=== PATIENT | female | born 1955 | race Caucasian/White ===

== ENCOUNTER → 2019-03-15 | Outpatient (CLI) | payer OTHER ==
[~2019-03-15] MED LIST: ATOR10; CLON1; EZET10; FLUO20; GABA300; LEVE500
[2019-03-15 15:50] LABS: Body Fluid Crystals NEG (NEGATIVE)
== END | disposition home or self-care (01) ==
LOC: LAB SHORT 12:45 → LAB EV 12:45
PROVIDERS: Family Medicine
DX: M17.31 Unilateral post-traumatic osteoarthritis, right knee (principal)
CPT/HCPCS: 89060

== ENCOUNTER 2019-09-17 07:14 | Day surgery (SDC) | payer OTHER ==
[~2019-09-17] VITALS: Ht 165.1 cm; Wt 70.1 kg
[~2019-09-17 07:14] MED LIST changes: +EUTHYROX50 MCG PO; +LOSA50 PO; +PANT40 PO; +PRESERVISION A1 EACH PO; +ROSU10TA PO; +Seroquel Xr50 MG PO; +TOPIRAMATE ER100 MG; +Vivelle-Dot1 EACH TD
--- NOTE | 2019-09-17 08:32 | NUR ---
09/17/19 0832 Jennifer Santos PT. VERBALIZES HAVING A COLD. PT. SOUNDS STUFFED UP. LUNGS CLEAR.
== END 2019-09-17 09:35 | disposition home or self-care (01) ==
LOC: ORSCSDS 07:14
PROVIDERS: Student in an Organized Health Care Education/Training Program
PROC: 0DB58ZX Excision of Esophagus, Via Natural or Artificial Opening Endoscopic, Diagnostic (ICD-10-PCS; principal; 2019-09-17 08:30)
PROC: 0DB68ZX Excision of Stomach, Via Natural or Artificial Opening Endoscopic, Diagnostic (ICD-10-PCS; principal; 2019-09-17 08:30)
DX: R13.10 Dysphagia, unspecified (principal); K21.9 Gastro-esophageal reflux disease without esophagitis; K29.70 Gastritis, unspecified, without bleeding; I10 Essential (primary) hypertension; E03.9 Hypothyroidism, unspecified; R56.9 Unspecified convulsions; Z87.891 Personal history of nicotine dependence; Z79.899 Other long term (current) drug therapy
CPT/HCPCS: 88305; 88342; J2704; J7120

== ENCOUNTER → 2021-11-09 | Outpatient (CLI) | payer OTHER ==
[2021-11-09 12:20] LABS: EOSINOPHILS PERCENT AUTO 5 % (0-6); Hematocrit 43.8 % (33.0-51.0); Hemoglobin 14.5 g/dL (11.5-16.0); LYMPHOCYTES PERCENT AUTO 30 % (21-46); MONOCYTES PERCENT AUTO 11 % (4-13); Mean Corpuscular HGB 32.3 pg (26.0-34.0); Mean Corpuscular HGB Conc 33.1 g/dL (31.5-36.5); Mean Corpuscular Volume 98 fL (80-100); Mean Platelet Volume 9.5 fL (9.1-12.4); NEUTROPHILS PERCENT AUTO 53 % (41-73); Platelet Count 328 K/mm3 (150-400); RDW Coefficient Variation 13.2 % (11.7-14.2); RDW Standard Deviation 47.5 fL (35.1-46.3); Red Blood Cell Count 4.49 M/mm3 (3.80-5.20)
[2021-11-09 12:21] LABS: BASOPHILS ABSOLUTE AUTO 0.07 K/mm3 (0.00-0.23); BASOPHILS PERCENT AUTO 1 % (0-2); EOSINOPHILS ABSOLUTE AUTO 0.33 K/mm3 (0.00-0.68); IMMATURE GRAN ABSOLUTE AUTO 0.01 K/mm3 (0.00-0.10); IMMATURE GRAN PERCENT AUTO 0 % (0-1); LYMPHOCYTES ABSOLUTE AUTO 1.97 K/mm3 (0.84-5.20); MONOCYTES ABSOLUTE AUTO 0.73 K/mm3 (0.16-1.47); NEUTROPHILS ABSOLUTE AUTO 3.49 K/mm3 (1.96-9.15)
[2021-11-09 13:18] LABS: Alanine Aminotransfer (ALT/SGP 41 U/L (12-78); Albumin, Blood 4.1 g/dL (3.4-5.0); Albumin/Globulin Ratio 1.5 (0.8-1.8); Alk Phos 92 U/L (40-126); Anion Gap 9 mmol/L (6-16); Aspartate Aminotrans (AST/SGOT 21 U/L (12-37); Bilirubin, Total 0.3 mg/dL (0.1-1.0); Blood Urea Nitrogen 24 mg/dL (8-24); Bun/Creatinine Ratio 30.4 (12.0-20.0); CO2, Blood 25 mmol/L (21-32); Chloride, Blood 112 mmol/L (98-108); Cholesterol 182 mg/dL (50-200); Creatinine, Blood 0.79 mg/dL (0.40-1.00); Free Thyroxine 0.86 ng/dL (0.70-1.60); Globulin, Blood 2.7 g/dL (2.2-4.0); Glomerular Filtration Rate >60 (60-); Glucose, Blood 98 mg/dL (70-99); HDL Cholesterol 46 mg/dL (>39); LDL/HDL RATIO 2.3; Low Density Lipoprotein Chol 104 mg/dL (<110); Potassium, Blood 4.5 mmol/L (3.5-5.5); Sodium, Blood 146 mmol/L (136-145); Thyroid Stimulating Hormone 0.565 uIU/mL (0.360-4.800); Total Protein, Blood 6.8 g/dL (6.4-8.2); Triglycerides 158 mg/dL (30-160); Very Low Density Lipoprot Chol 31 mg/dL (6-32)
== END | disposition home or self-care (01) ==
LOC: LAB SHORT 12:11
PROVIDERS: Family Medicine
DX: E78.5 Hyperlipidemia, unspecified (principal); E03.9 Hypothyroidism, unspecified; I10 Essential (primary) hypertension
CPT/HCPCS: 36415; 80053; 80061; 84439; 84443; 85025

== ENCOUNTER → 2022-11-02 | Outpatient (CLI) | payer OTHER | END | disposition home or self-care (01) | LOC: PLD 07:55 → LAB SHORT 07:55 | DX: D48.5 Neoplasm of uncertain behavior of skin (principal) | CPT/HCPCS: 88305 ==

== ENCOUNTER → 2023-02-17 | Outpatient (CLI) | payer OTHER ==
[2023-02-17 13:59] LABS: Source, Urine Clean Catch
[2023-02-17 14:38] LABS: Appearance, Urine Cloudy (Clear); Bilirubin, Urine Neg (Neg); Blood, Urine Neg (Neg); Color, Urine Yellow (P-Yellow); Glucose Qualitative, Urine Neg (Neg); Ketones, Urine Neg (Neg); Leukocyte Esterase, Urine 3+ (Neg); Nitrite, Urine Pos (Neg); Protein, Urine 1+ (Neg); Specific Gravity, Urine 1.015 (1.003-1.022); Urobilinogen, Urine NORM (Normal)
[2023-02-17 15:06] LABS: Bacteria Many /hpf; Red Blood Cells, Urine 0-2 /hpf (0-2); Squamous Epithelial Cells Rare /hpf (Few); White Blood Cells, Urine 50-100 /hpf (0-5)
== END | disposition home or self-care (01) ==
LOC: LAB SHORT 13:30 → LAB 13:30
PROVIDERS: Family Medicine
DX: R30.0 Dysuria (principal)
CPT/HCPCS: 81001; 87077; 87086; 87186

== ENCOUNTER → 2025-01-22 | Outpatient (CLI) | payer OTHER ==
[~2025-01-22] MED LIST changes: +ATORVASTATIN CA20 MG PO
[2025-01-22 15:03] LABS: BASOPHILS ABSOLUTE AUTO 0.05 K/mm3 (0.00-0.23); BASOPHILS PERCENT AUTO 1 % (0-2); EOSINOPHILS ABSOLUTE AUTO 0.16 K/mm3 (0.00-0.68); EOSINOPHILS PERCENT AUTO 3 % (0-6); Hematocrit 46.3 % (33.0-51.0); Hemoglobin 15.5 g/dL (11.5-16.0); IMMATURE GRAN ABSOLUTE AUTO 0.02 K/mm3 (0.00-0.10); IMMATURE GRAN PERCENT AUTO 0 % (0-1); LYMPHOCYTES ABSOLUTE AUTO 1.69 K/mm3 (0.84-5.20); LYMPHOCYTES PERCENT AUTO 28 % (21-46); MONOCYTES ABSOLUTE AUTO 0.52 K/mm3 (0.16-1.47); MONOCYTES PERCENT AUTO 9 % (4-13); Mean Corpuscular HGB 33.6 pg (26.0-34.0); Mean Corpuscular HGB Conc 33.5 g/dL (31.5-36.5); Mean Corpuscular Volume 100 fL (80-100); NEUTROPHILS ABSOLUTE AUTO 3.53 K/mm3 (1.96-9.15); NEUTROPHILS PERCENT AUTO 59 % (41-73); Platelet Count 320 K/mm3 (150-400); RDW Coefficient Variation 12.6 % (11.7-14.2); RDW Standard Deviation 46.9 fL (35.1-46.3); Red Blood Cell Count 4.61 M/mm3 (3.80-5.20); White Blood Cell Count 5.97 K/mm3 (4.00-11.30)
[2025-01-22 15:26] LABS: Albumin, Blood 4.2 g/dL (3.4-5.0); Albumin/Globulin Ratio 1.3 (0.8-1.8); Bilirubin, Total 0.4 mg/dL (0.1-1.0); Bun/Creatinine Ratio 15.5 (12.0-20.0); Calcium, Blood 9.2 mg/dL (8.5-10.1); Creatinine, Blood 0.84 mg/dL (0.40-1.00); Globulin, Blood 3.3 g/dL (2.2-4.0); Thyroid Stimulating Hormone 1.4 uIU/mL (0.360-4.800); Total Protein, Blood 7.5 g/dL (6.4-8.2)
== END ==
LOC: LAB SHORT 14:56 → LAB 14:56
PROVIDERS: Physician Assistant
DX: R53.83 Other fatigue (principal); R82.81 Pyuria
CPT/HCPCS: 80053; 84443; 85025; 87086

== ENCOUNTER 2025-01-27 12:49 | Inpatient (IN) | payer OTHER ==
[~2025-01-27] VITALS: Ht 162.6 cm; Wt 76.4 kg
[~2025-01-27 12:49] MED LIST changes: +ALORA1 EA11; -ATORVASTATIN CA20 MG PO; -Vivelle-Dot1 EACH TD
[2025-01-27 13:18] LABS: BASOPHILS ABSOLUTE AUTO 0.07 K/mm3 (0.00-0.23); BASOPHILS PERCENT AUTO 1 % (0-2); EOSINOPHILS ABSOLUTE AUTO 0.07 K/mm3 (0.00-0.68); EOSINOPHILS PERCENT AUTO 1 % (0-6); Hematocrit 44.6 % (33.0-51.0); Hemoglobin 15.1 g/dL (11.5-16.0); IMMATURE GRAN ABSOLUTE AUTO 0.05 K/mm3 (0.00-0.10); IMMATURE GRAN PERCENT AUTO 0 % (0-1); LYMPHOCYTES ABSOLUTE AUTO 2.02 K/mm3 (0.84-5.20); LYMPHOCYTES PERCENT AUTO 17 % (21-46); MONOCYTES ABSOLUTE AUTO 0.85 K/mm3 (0.16-1.47); MONOCYTES PERCENT AUTO 7 % (4-13); Mean Corpuscular HGB Conc 33.9 g/dL (31.5-36.5); Mean Corpuscular Volume 101 fL (80-100); Mean Platelet Volume 9.1 fL (9.1-12.4); NEUTROPHILS ABSOLUTE AUTO 9.09 K/mm3 (1.96-9.15); NEUTROPHILS PERCENT AUTO 75 % (41-73); Platelet Count 297 K/mm3 (150-400); RDW Coefficient Variation 12.6 % (11.7-14.2); Red Blood Cell Count 4.44 M/mm3 (3.80-5.20); White Blood Cell Count 12.15 K/mm3 (4.00-11.30)
[2025-01-27 13:41] LABS: Albumin, Blood 3.8 g/dL (3.4-5.0); Albumin/Globulin Ratio 1.2 (0.8-1.8); Bilirubin, Total 0.5 mg/dL (0.1-1.0); Bun/Creatinine Ratio 22.6 (12.0-20.0); Calcium, Blood 8.5 mg/dL (8.5-10.1); Creatinine, Blood 0.8 mg/dL (0.40-1.00); Globulin, Blood 3.1 g/dL (2.2-4.0); Potassium, Blood 3.6 mmol/L (3.5-5.5); Total Protein, Blood 6.9 g/dL (6.4-8.2)
[2025-01-27] MEDS ORDERED: Aspirin 325 MG Tab PO ONE (14:30)
[2025-01-27] MEDS ORDERED: FentaNYL Citrate 50 MCG/ML 2 ML Injection IV ONE (14:45)
[2025-01-27] MEDS ORDERED: Ondansetron HCl 2 MG / ML 2ML Vial IV ONE (14:45)
[2025-01-27 15:08] LABS: Anti-Xa UFH, PHA Monitoring <0.10 IU/mL; International Normalized Ratio 0.98; Prothrombin Time Results 10.5 Sec (9.7-11.5)
[2025-01-27] MEDS ORDERED: Dose Adjust by Pharmacy XX STA ×2 (15:19→23:03)
[2025-01-27] MEDS ORDERED: Heparin Sodium,Porcine/0.5 NS 500 ML IV SCH (15:20)
[2025-01-27] MEDS ORDERED: Heparin Sodium 5000 Units/ML 1ML MDV IV ONE (15:20)
[2025-01-27] MEDS ORDERED: Nitroglycerin 0.4 MG SUBL SL PRN (16:05)
[2025-01-27] MEDS ORDERED: HydrALAZINE HCl 20 MG / ML 1ML Vial IV PRN (16:10)
[2025-01-27] MEDS ORDERED: FLU VACC TS2024-25(6MOS UP)/PF 45 MCG/0.5 ML SYRINGE IM PRN (16:10)
[2025-01-27] MEDS ORDERED: FentaNYL Citrate 50 MCG/ML 2 ML Injection IV PRN (16:10)
[2025-01-27 18:30] VITALS: BP 164/84
[2025-01-27] MEDS ORDERED: Acetaminophen 325 MG TABLET PO PRN (18:40)
[2025-01-27] MEDS ORDERED: Simethicone 80 MG Chew PO PRN (18:40)
[2025-01-27] MEDS ORDERED: ATORVASTATIN CA20 MG PO (18:44)
[2025-01-27 20:32] VITALS: BP 150/88
[2025-01-27] MEDS ORDERED: LORazepam 1 MG Tab PO ONE (20:49)
[2025-01-27] MEDS ORDERED: QUEtiapine Fumarate 50 MG TAB PO SCH (21:00)
[2025-01-27] MEDS ORDERED: Levothyroxine Sodium 0.05 MG Tab PO SCH (21:10)
[2025-01-27] MEDS ORDERED: Aspirin 81 MG Chew PO SCH (21:10)
[2025-01-27] MEDS ORDERED: Losartan Potassium 50 MG Tab PO SCH (21:10)
[2025-01-27] MEDS ORDERED: Topiramate 100 MG Tab PO SCH (21:10)
[2025-01-27] MEDS ORDERED: Atorvastatin 40 MG Tab PO SCH (21:10)
[2025-01-28] VITALS (11 sets, daily range): BP systolic 99–158; BP diastolic 63–99
[2025-01-28 05:01] LABS: BASOPHILS PERCENT AUTO 1 % (0-2); EOSINOPHILS PERCENT AUTO 2 % (0-6); Hematocrit 47.4 % (33.0-51.0); Hemoglobin 16.4 g/dL (11.5-16.0); IMMATURE GRAN ABSOLUTE AUTO 0.05 K/mm3 (0.00-0.10); IMMATURE GRAN PERCENT AUTO 0 % (0-1); LYMPHOCYTES ABSOLUTE AUTO 4.55 K/mm3 (0.84-5.20); LYMPHOCYTES PERCENT AUTO 39 % (21-46); MONOCYTES ABSOLUTE AUTO 0.87 K/mm3 (0.16-1.47); MONOCYTES PERCENT AUTO 7 % (4-13); Mean Corpuscular HGB 34.8 pg (26.0-34.0); Mean Corpuscular HGB Conc 34.6 g/dL (31.5-36.5); Mean Corpuscular Volume 101 fL (80-100); Mean Platelet Volume 9.2 fL (9.1-12.4); NEUTROPHILS ABSOLUTE AUTO 6.02 K/mm3 (1.96-9.15); NEUTROPHILS PERCENT AUTO 51 % (41-73); Platelet Count 321 K/mm3 (150-400); RDW Coefficient Variation 12.6 % (11.7-14.2); RDW Standard Deviation 47.2 fL (35.1-46.3); Red Blood Cell Count 4.71 M/mm3 (3.80-5.20); White Blood Cell Count 11.79 K/mm3 (4.00-11.30)
[2025-01-28 05:17] LABS: Bun/Creatinine Ratio 18.9 (12.0-20.0); Calcium, Blood 8.7 mg/dL (8.5-10.1); Creatinine, Blood 0.74 mg/dL (0.40-1.00); Potassium, Blood 4.1 mmol/L (3.5-5.5)
[2025-01-28] MEDS ORDERED: Dose Adjust by Pharmacy XX STA (05:36)
[2025-01-28] MEDS ORDERED: Levothyroxine Sodium 0.05 MG Tab PO SCH ×2 (06:00→21:00)
[2025-01-28] MEDS ORDERED: LORazepam 2 MG/ML 1ML Injection IV PRN (06:40)
[2025-01-28] MEDS ORDERED: LORazepam 2 MG/ML 1ML Injection IV ONE (06:50)
--- NOTE | 2025-01-28 07:37 | NUR ---
SHIFT SUMMARY: PT IS A&OX4, VERY ANXIOUS AND SCARED ABOUT THIS HOSPITALIZATION. C/O MANCILLA, BUT WANTED TO WAIT FOR ANY MEDICATION. ANTI-ANXIETY MEDICATIONS ORDERED AND GIVEN WITH GOOD EFFECT. HEP GTT INFUSING PER ORDERS. TOLERATING A HEART HEALTHY DIET, NPO AFTER MN FOR ANGIOGRAM THIS MORNING. CRITICAL TROPONIN THIS AM 16,533, DR UP AWARE. SBA FOR LINE MANAGEMENT. VOIDING LARGE AMOUNTS OF CLEAR, YELLOW URINE. NO BM THIS SHIFT. BED IN LOWEST POSITION, CALL LIGHT WITHIN REACH. CALLS APPROPRIATELY AND IS ABLE TO ADVOCATE NEEDS EFFECTIVELY.
[2025-01-28] MEDS ORDERED: Clopidogrel Bisulfate 300 MG Cap PO STA (07:52)
[2025-01-28] MEDS ORDERED: Metoprolol Succinate 25 MG TABCR PO SCH (08:00)
[2025-01-28] MEDS ORDERED: Heparin Sodium 1000 Units/ML 10ML MDV ONE ×2 (08:16→11:06)
[2025-01-28] MEDS ORDERED: Verapamil HCL 2.5 MG/ML 2ML Injection ONE (08:16)
[2025-01-28] MEDS ORDERED: NS 1,000 ML IV ONE ×2 (08:16→10:07)
[2025-01-28] MEDS ORDERED: Nitroglycerin 2 MG/20 ML BTL ONE (08:16)
[2025-01-28] MEDS ORDERED: NS 250 ML IV ONE (08:16)
[2025-01-28] MEDS ORDERED: Losartan Potassium 50 MG Tab PO SCH ×2 (09:00→21:00)
[2025-01-28] MEDS ORDERED: Atorvastatin 40 MG Tab PO SCH ×2 (09:00→21:00)
[2025-01-28] MEDS ORDERED: Fluconazole 100 MG Tab PO SCH (09:00)
[2025-01-28] MEDS ORDERED: Aspirin 81 MG Chew PO SCH ×3 (09:00→21:00)
[2025-01-28] MEDS ORDERED: Topiramate 100 MG Tab PO SCH ×2 (09:00→21:00)
--- NOTE | 2025-01-28 09:55 | NUR ---
THE PT INFORMED THIS RN THAT SHE RECIEVED A PHONE CALL FROM URGENT CARE THIS MORNING BECAUSE SHE TESTED POSITIVE FOR A YEAST INFECTION LAST WEEK AND THEY WERE GOING TO START HE ON DIFLUCAN. THIS RN LET DR. RANGEL KNOW AND THE ANTIFUNGLE WAS STARTED HERE. THE PT WILL BE GOING FOR AN ANGIOGRAM THIS MORNING. DR. LOYA WENT OVER CONSENT WITH THE PT AND DR. LOYOLA WILL BE DOING THE PROCEDURE. SHE REMAINS ON A HEPARIN GTT MANAGED PER PHARMACY. SHE IS NPO. HER IS AT BEDSIDE AND UPDATED ON CARE. ON TELE SHE IS SR 70'S-90'S AND BP STABLE. SHE HAS DENIED ANY ANGINA OR CHEST PRESSURE. SHE IS ON RA W/ SP02 >93%. PT DENIES ANY SOB. SHE IS A SBA FOR LINE MANAGEMENT AND WAS ABLE TO TAKE A SHOWER THIS MORNING BEFORE HER PROCEDURE. WAITING ON THE HEAD AUTOMATIC SAWYER AT THIS TIME. SEE NOTES FOR UPDATES.
[2025-01-28] MEDS ORDERED: FentaNYL Citrate 50 MCG/ML 2 ML Injection ONE ×2 (10:29→11:31)
[2025-01-28] MEDS ORDERED: Midazolam HCl 1MG / ML 2ML Vial ONE (10:30)
[2025-01-28] MEDS ORDERED: Ondansetron HCl 2 MG / ML 2ML Vial ONE (11:05)
[2025-01-28] MEDS ORDERED: Clopidogrel Bisulfate 300 MG Cap ONE (11:12)
[2025-01-28] MEDS ORDERED: Mag Hydrox/AL Hydrox/Simeth 30 ML UDC ONE (11:40)
[2025-01-28] MEDS ORDERED: Metoclopramide HCL Soln 10 MG/10 ML UDC PO PRN (12:20)
--- NOTE | 2025-01-28 13:22 | NUR ---
PT BACK FROM ANGIOGRAM ABOUT 1240. PT'S FAMILY PRESENT AT THE BEDSIDE THE PT HAS RIGHT RADIAL ACCESS AND TWO TR BANDS W/ 10 CC'S ON THE RIGHT WRIST. THE PT'S RIGHT HAND IS PURPLE IN COLOR BUT CAP REFILL <3, GOOD PLEATH. PT DOES HAVE NOTED N/T IN DISTAL FINGERS. THE SECOND TRBAND WAS PLACED IN THE POST OP ROOM D/T HEMATOMA. THE PT WAS HAVING SOME NAUSEA BUT SIPPING SEIRRA MIST AND EATING CRACKERS RESOLVED NAUSEA. SHE CONTINUES TO HAVE A HEADACHE AFTER RECIEVING NITRO IN THE AUTOMATION TEST DEVELOPER. THE PT HAS NOT HAD ANY ANGINA OR CHEST PRESSURE SINCE RETURNING TO THE ROOM. EKG COMPLETED PER ORDER. HEPARIN GTT WAS D/C'D. RIGHT WRIST TR BAND RECOVERY PER PROTOCOL. THE PT'S STENT CARD WAS GIVEN TO LIZBETH, THE PT'S SPOUSE. SEE NOTES FOR UPDATES.
--- NOTE | 2025-01-28 15:02 | NUR ---
TRBAND UPDATE THE PT'S PROXIMAL TRBAND PLACED FOR HEMATOMA WAS REMOVED ABOUT 1425. WHEN THIS RN WENT TO CHECK ON THE PT'S WRIST AT 1435 A HEMATOMA WAS NOTED PROXIMAL TO THE ACCESS TRBAND. MANNUAL PRESSURE WAS HELD FOR 15 MINUTES AND HEMATOMA TRBAND WAS PLACED BACK OVER THE SITE WITH 9CC'S OF AIR FOR MANNUAL PRESSURE. SEE NOTES FOR UPDATES.
--- NOTE | 2025-01-28 16:19 | NUR ---
TR BAND UPDATE THIS RN CALLED [facility] RADIOLOGICAL TECHNOLOGIST SANDRA TO HELP ASSESS THE PT'S RADIAL SITE BECAUSE OF ONGOING HEMTOMA POST 4 HOURS AND THE NEED FOR CONTINUED MANNUAL PRESSURE. SANDRA MESSAGED DR. FISCHER TO ASSESS THE PT'S WRIST. HE PLACED A MANNUAL BLOOD PRESSURE CUFF ON THE PT'S WRIST AND GAVE INSTRUCTIONS TO DEFLATE 10MM FROM THE CUFF, THEN RECLAMP. AFTER TWENTY MINUTES WE WILL DEFLATE ANOTHER 10MM FROM THE MANNUAL CUFF AND RECLAMP THE CUFF. ORDERS TO REASSESS THE SITE AFTER ANOTHER TWENTY MINUTES. SEE NOTES FOR UPDATES.
--- NOTE | 2025-01-28 17:54 | NUR ---
TR BAND UPDATE RIGHT WRIST W/O ANY COMPRESSION. GAUZE AND TEGADERM IINTACT AND ARMBOARD ON. SITE WITH ECCHYMOSIS AND TENDERNESS. PT REMAINS ON RA W/ SP02 >94%, AND DENIES ANY SOB. ON TELE SHE IS SR 70'S-90'S. TOLERATING PO INTAKE. PT HAD ON-OFF HEADACHE AND NAUSEA. PROVIDER AWARE. FAMILY AT BEDSIDE AND UPDATED ON CARE.
[2025-01-29 03:50] LABS: BASOPHILS ABSOLUTE AUTO 0.05 K/mm3 (0.00-0.23); BASOPHILS PERCENT AUTO 1 % (0-2); EOSINOPHILS ABSOLUTE AUTO 0.15 K/mm3 (0.00-0.68); EOSINOPHILS PERCENT AUTO 2 % (0-6); Hematocrit 43.7 % (33.0-51.0); Hemoglobin 14.9 g/dL (11.5-16.0); IMMATURE GRAN ABSOLUTE AUTO 0.06 K/mm3 (0.00-0.10); IMMATURE GRAN PERCENT AUTO 1 % (0-1); LYMPHOCYTES ABSOLUTE AUTO 2.74 K/mm3 (0.84-5.20); LYMPHOCYTES PERCENT AUTO 28 % (21-46); MONOCYTES ABSOLUTE AUTO 0.88 K/mm3 (0.16-1.47); MONOCYTES PERCENT AUTO 9 % (4-13); Mean Corpuscular HGB Conc 34.1 g/dL (31.5-36.5); Mean Corpuscular Volume 100 fL (80-100); NEUTROPHILS ABSOLUTE AUTO 6.05 K/mm3 (1.96-9.15); NEUTROPHILS PERCENT AUTO 61 % (41-73); Platelet Count 322 K/mm3 (150-400); RDW Coefficient Variation 12.6 % (11.7-14.2); Red Blood Cell Count 4.38 M/mm3 (3.80-5.20); White Blood Cell Count 9.93 K/mm3 (4.00-11.30)
[2025-01-29 04:15] LABS: Bun/Creatinine Ratio 19.3 (12.0-20.0); Calcium, Blood 8.8 mg/dL (8.5-10.1); Creatinine, Blood 0.83 mg/dL (0.40-1.00); Potassium, Blood 3.7 mmol/L (3.5-5.5)
[2025-01-29 04:31] VITALS: BP 101/67
[2025-01-29] MEDS ORDERED: Pantoprazole Sodium 40 MG Injection IV STA (06:21)
--- NOTE | 2025-01-29 06:56 | NUR ---
SHIFT SUMMARY: PT IS A&OX4, ANXIOUS ABOUT THIS HOSPITALIZATION. SHE IS PLEASANT AND COOPERATIVE WITH CARE. VSS ON RA. BP STABLE WITH MAP >65. SB-SR 55-70'S. C/O MANCILLA, MEDICATED WITH TYLENOL. ALSO C/O SOME NAUSEA, MEDICATED WITH REGLAN AND PT SLEPT THROUGH THE NIGHT. TOLERATING A HEART HEALTHY DIET. RIGHT WRIST ACCESS SITE ECCYMOTIC AND WARM, BUT SOFT AND ARM BOARD REMAINS IN PLACE. THIS MORNING PT STATES SHE HAS SOME BURNING IN HER CHEST LIKE WHAT SHE WAS FEELING WHEN SHE CAME IN, SO DR. LOYA ORDERED A STAT TROPONIN, AWAITING TEST RESULTS. SBA FOR LINE MANAGEMENT. VOIDING ADEQUATE AMOUNTS OF CLEAR, YELLOW URINE. NO BM THIS SHIFT. BED IN LOWEST POSITION, CALL LIGHT WITHIN REACH. CALLS APPROPRIATELY AND IS ABLE TO ADVOCATE NEEDS EFFECTIVELY.
[2025-01-29] MEDS ORDERED: Mag Hydrox/Al Hydrox/Simeth 18 ML,Lidocaine 2% Viscous Soln 9 ML,Atropine/Scopalam/Hyos... PO ONE (07:40)
[2025-01-29 07:55] VITALS: BP 103/63
[2025-01-29] MEDS ORDERED: Clopidogrel Bisulfate 75 MG Tab PO SCH (09:00)
[2025-01-29] MEDS ORDERED: ASPI81CH PO (11:03)
[2025-01-29] MEDS ORDERED: CLOP75 PO (11:04)
[2025-01-29] MEDS ORDERED: LOSA50 PO (11:04)
[2025-01-29] MEDS ORDERED: METO25ER PO (11:05)
[2025-01-29] MEDS ORDERED: PANT20 PO (11:05)
[2025-01-29] MEDS ORDERED: ATOR80 PO (11:05)
[2025-01-29 11:23] VITALS: BP 129/74
--- NOTE | 2025-01-29 12:26 | NUR ---
PATIENT AOX4 ABLE TO MAKE NEEDS KNOWN. SHE DENIES CHEST PAIN OR PRESSURE. SHE DID HAVE INDIGESTION WHICH IMPROVED WITH ORDERED GI COCKTAIL FROM CARDIOLOGY. HER RIGHT WRIST DOES HAVE BRUISING BUT NO HEMATOMA AND DRESSING IS CDI. HER VVS. SHE WAS EDUCATED ON ALL DISCHARGE AND FOLLOWUP INFORMATION WITH AT BEDSIDE AND THEY HAVE NO FURTHER QUESTIONS.
[2025-01-30] MEDS ORDERED: Pantoprazole Sodium 20 MG Tab PO SCH (06:00)
== END 2025-01-29 12:04 | disposition home or self-care (01) | DRG 322 ==
LOC: ER 12:49 → PCU 16:03
PROVIDERS: Emergency Medicine; Internal Medicine; Student in an Organized Health Care Education/Training Program; ADMIT Family Medicine
PROC: 027034Z Dilation of Coronary Artery, One Artery with Drug-eluting Intraluminal Device, Percutaneous Approach (ICD-10-PCS; principal; 2025-01-28)
PROC: B241ZZ3 Ultrasonography of Multiple Coronary Arteries, Intravascular (ICD-10-PCS; 2025-01-28)
PROC: 4A023N7 Measurement of Cardiac Sampling and Pressure, Left Heart, Percutaneous Approach (ICD-10-PCS; 2025-01-28)
PROC: B2111ZZ Fluoroscopy of Multiple Coronary Arteries using Low Osmolar Contrast (ICD-10-PCS; 2025-01-28)
DX: I21.4 Non-ST elevation (NSTEMI) myocardial infarction (principal); I10 Essential (primary) hypertension; E78.5 Hyperlipidemia, unspecified; K30 Functional dyspepsia; E03.9 Hypothyroidism, unspecified; I25.10 Atherosclerotic heart disease of native coronary artery without angina pectoris; G40.909 Epilepsy, unspecified, not intractable, without status epilepticus; Z96.651 Presence of right artificial knee joint; Z88.0 Allergy status to penicillin; Z88.5 Allergy status to narcotic agent; Z88.8 Allergy status to other drugs, medicaments and biological substances; Z79.82 Long term (current) use of aspirin; Z79.890 Hormone replacement therapy
CPT/HCPCS: 36415; 71046; 76937; 80048; 80053; 84484; 85025; 85347; 85520; 85610; 92978; 92979; 93005; 93010; 93306; 93458; 96374; 96375; 99152; 99153; 99284-25; A9270; C1725; C1753; C1769; C1874; C1887; C1894; C9600; J1644; J2060; J2250; J2405; J2470; J3010; J7030; J7050; Q9967

== ENCOUNTER 2025-02-17 17:05 | Emergency (ER) | payer OTHER ==
[~2025-02-17] VITALS: Ht 193 cm; Wt 76.2 kg
[~2025-02-17 17:05] MED LIST changes: +ASPI81CH PO; +ATOR80 PO; +ATORVASTATIN CA20 MG PO; +CLOP75 PO; +METO25ER PO; +PANT20 PO
[2025-02-17 17:35] LABS: BASOPHILS ABSOLUTE AUTO 0.05 K/mm3 (0.00-0.23); BASOPHILS PERCENT AUTO 1 % (0-2); EOSINOPHILS ABSOLUTE AUTO 0.18 K/mm3 (0.00-0.68); EOSINOPHILS PERCENT AUTO 3 % (0-6); Hematocrit 41.7 % (33.0-51.0); Hemoglobin 14.2 g/dL (11.5-16.0); IMMATURE GRAN ABSOLUTE AUTO 0.05 K/mm3 (0.00-0.10); IMMATURE GRAN PERCENT AUTO 1 % (0-1); LYMPHOCYTES ABSOLUTE AUTO 1.48 K/mm3 (0.84-5.20); LYMPHOCYTES PERCENT AUTO 25 % (21-46); MONOCYTES PERCENT AUTO 10 % (4-13); Mean Corpuscular HGB 33.6 pg (26.0-34.0); Mean Corpuscular HGB Conc 34.1 g/dL (31.5-36.5); Mean Corpuscular Volume 99 fL (80-100); NEUTROPHILS ABSOLUTE AUTO 3.46 K/mm3 (1.96-9.15); NEUTROPHILS PERCENT AUTO 59 % (41-73); RDW Coefficient Variation 12.4 % (11.7-14.2); RDW Standard Deviation 44.8 fL (35.1-46.3); Red Blood Cell Count 4.22 M/mm3 (3.80-5.20); White Blood Cell Count 5.82 K/mm3 (4.00-11.30)
[2025-02-17 17:50] LABS: Albumin, Blood 3.7 g/dL (3.4-5.0); Albumin/Globulin Ratio 1.4 (0.8-1.8); Bilirubin, Total 0.1 mg/dL (0.1-1.0); Bun/Creatinine Ratio 16.6 (12.0-20.0); Calcium, Blood 8.8 mg/dL (8.5-10.1); Creatinine, Blood 0.9 mg/dL (0.40-1.00); Globulin, Blood 2.6 g/dL (2.2-4.0); Potassium, Blood 3.7 mmol/L (3.5-5.5); Total Protein, Blood 6.3 g/dL (6.4-8.2)
[2025-02-17 17:53] LABS: Mean Platelet Volume 9.5 fL (9.1-12.4); Platelet Count 311 K/mm3 (150-400)
[2025-02-17 18:30] VITALS: BP 120/69
[2025-02-17] MEDS ORDERED: Voltaren100 GM TOP (18:49)
[2025-02-17] MEDS ORDERED: LIDO700A20 TOP (18:49)
[2025-02-18] MEDS ORDERED: Voltaren100 GM TOP (09:49)
== END 2025-02-17 19:02 | disposition home or self-care (01) ==
LOC: ER 17:05
PROVIDERS: Emergency Medicine
DX: M25.512 Pain in left shoulder (principal); I25.2 Old myocardial infarction; E78.5 Hyperlipidemia, unspecified; K21.9 Gastro-esophageal reflux disease without esophagitis; I10 Essential (primary) hypertension; E03.9 Hypothyroidism, unspecified; Z95.5 Presence of coronary angioplasty implant and graft; Z88.8 Allergy status to other drugs, medicaments and biological substances; Z88.5 Allergy status to narcotic agent; Z88.0 Allergy status to penicillin; Z79.890 Hormone replacement therapy; Z79.82 Long term (current) use of aspirin; Z79.01 Long term (current) use of anticoagulants; Z79.899 Other long term (current) drug therapy
CPT/HCPCS: 71045; 80053; 83880; 84484; 85025; 93005; 93010; 99285-25